=== PATIENT | male | born 1980 | race Caucasian/White ===

== ENCOUNTER → 2020-06-11 | Outpatient (CLI) | payer OTHER ==
[~2020-06-11] MED LIST: CETIRIZINE HCL10 MG PO; CIALIS20 MG PO; CIALIS5 MG PO; EPIPEN 2-P0.3 MG/0.3 INJ; IBU800 MG PO; LIPITOR40 MG PO; LISINOPRIL10 MG PO; SINGULAIR10 MG PO; VOLTAREN EC 5050 MG PO
[2020-06-11 10:16] LABS: HEMOGLOBIN 15.9 gm/dl (14.0-17.5); RED BLOOD COUNT 4.84 M/UL (4.20-5.50); WHITE BLOOD COUNT 8.4 K/UL (4.5-11.0)
[2020-06-11 10:39] LABS: BUN/CREATININE RATIO 10 (0-10)
== END ==
LOC: OPSV2 09:33
PROVIDERS: Orthopaedic Surgery
DX: Z01.818 Encounter for other preprocedural examination (principal); S43.431A Superior glenoid labrum lesion of right shoulder, initial encounter; M75.101 Unspecified rotator cuff tear or rupture of right shoulder, not specified as traumatic; I49.3 Ventricular premature depolarization; X58.XXXA Exposure to other specified factors, initial encounter
CPT/HCPCS: 36415; 71046; 80048; 85027; 93005

== ENCOUNTER → 2020-06-14 | Day surgery (SDC) | payer OTHER ==
[~2020-06-14] VITALS: Ht 182.9 cm; Wt 124.7 kg
== END | disposition home or self-care (01) ==
LOC: OR 06:12
PROVIDERS: Orthopaedic Surgery
PROC: 0RBJ4ZZ Excision of Right Shoulder Joint, Percutaneous Endoscopic Approach (ICD-10-PCS; principal; 2020-06-14 07:30)
PROC: 0RNJ4ZZ Release Right Shoulder Joint, Percutaneous Endoscopic Approach (ICD-10-PCS; 2020-06-14 07:30)
PROC: 3E0T3BZ Introduction of Anesthetic Agent into Peripheral Nerves and Plexi, Percutaneous Approach (ICD-10-PCS; 2020-06-14 07:30)
DX: S43.431A Superior glenoid labrum lesion of right shoulder, initial encounter (principal); M75.111 Incomplete rotator cuff tear or rupture of right shoulder, not specified as traumatic; M75.51 Bursitis of right shoulder; S43.491A Other sprain of right shoulder joint, initial encounter; M25.811 Other specified joint disorders, right shoulder; G89.18 Other acute postprocedural pain; I10 Essential (primary) hypertension; F17.210 Nicotine dependence, cigarettes, uncomplicated; M19.90 Unspecified osteoarthritis, unspecified site; F41.9 Anxiety disorder, unspecified; F32.9 Major depressive disorder, single episode, unspecified; E78.5 Hyperlipidemia, unspecified; M35.7 Hypermobility syndrome; Z79.1 Long term (current) use of non-steroidal anti-inflammatories (NSAID); Z79.891 Long term (current) use of opiate analgesic; Z79.899 Other long term (current) drug therapy; Z88.0 Allergy status to penicillin; Z88.8 Allergy status to other drugs, medicaments and biological substances; Z91.018 Allergy to other foods; Z20.822 Contact with and (suspected) exposure to COVID-19; X50.9XXA Other and unspecified overexertion or strenuous movements or postures, initial encounter
CPT/HCPCS: C1713; J0171; J0592; J1100; J1885; J2001; J2250; J2405; J2704; J2710; J2795; J3010; J7120

== ENCOUNTER → 2020-07-23 | Outpatient (CLI) | payer OTHER | LOC: KOH-I 12:57 | DX: G43.909 Migraine, unspecified, not intractable, without status migrainosus (principal) | CPT/HCPCS: 70450 ==

== ENCOUNTER 2021-04-07 06:47 | Inpatient (IN) | payer OTHER ==
[~2021-04-07] VITALS: Ht 182.9 cm; Wt 106.6 kg
[~2021-04-07 06:47] MED LIST changes: +HYDROCODON-ACE1 EAC4 PO
[2021-04-07 11:03] LABS: BUN/CREATININE RATIO 16 (0-10)
[2021-04-07 11:27] LABS: HEMOGLOBIN 15.3 gm/dl (14.0-17.5); RED BLOOD COUNT 4.65 M/UL (4.20-5.50); WHITE BLOOD COUNT 14.7 K/UL (4.5-11.0)
[2021-04-07 14:41] LABS: CRYPTOCOCCUS NEOFORMANS/GATTII Not Detected (Negative); CYTOMEGALOVIRUS Not Detected (Negative); ENTEROVIRUS Not Detected (Negative); ESCHERICHIA COLI K1 Not Detected (Negative); HAEMOPHILUS INFLUENZAE Not Detected (Negative); HERPES SIMPLEX VIRUS 1 Not Detected (Negative); HERPES SIMPLEX VIRUS 2 Not Detected (Negative); HUMAN HERPESVIRUS 6 Not Detected (Negative); HUMAN PARECHOVIRUS Not Detected (Negative); LISTERIA MONOCYTOGENES Not Detected (Negative); NEISERRIA MENINGITIDIS Not Detected (Negative); STREPTOCOCCUS AGALACTIAE Not Detected (Negative); STREPTOCOCCUS PNEUMONIAE Not Detected (Negative); VARICELLA ZOSTER VIRUS Not Detected (Negative)
[2021-04-07 15:22] LABS: GLUCOSE,CSF 60 mg/dL (50-80); TOTAL PROTEIN,CSF 35 mg/dL (20-45)
[2021-04-07 15:26] LABS: WBC (AUTOMATED 1 10^3 (0-5)
[2021-04-07 17:25] LABS: WBC (AUTOMATED 5 10^3 (0-5)
[2021-04-08 04:10] LABS: HEMOGLOBIN 15.3 gm/dl (14.0-17.5); RED BLOOD COUNT 4.63 M/UL (4.20-5.50); WHITE BLOOD COUNT 12.1 K/UL (4.5-11.0)
[2021-04-08 04:58] LABS: BUN/CREATININE RATIO 23 (0-10)
[2021-04-08] MEDS ORDERED: ZESTRIL10 MG PO (14:19)
== END 2021-04-08 19:45 | disposition home or self-care (01) | DRG 103 ==
LOC: ER1 06:47 → CDU 18:00 → ER1 18:00 → CDU 18:00
PROVIDERS: Internal Medicine; Nurse Practitioner; ADMIT Internal Medicine
PROC: 009U3ZX Drainage of Spinal Canal, Percutaneous Approach, Diagnostic (ICD-10-PCS; principal; 2021-04-07)
PROC: B01B1ZZ Fluoroscopy of Spinal Cord using Low Osmolar Contrast (ICD-10-PCS; 2021-04-07)
DX: R51.9 Headache, unspecified (principal); R41.0 Disorientation, unspecified; Z20.822 Contact with and (suspected) exposure to COVID-19; I10 Essential (primary) hypertension; E78.5 Hyperlipidemia, unspecified; Z88.0 Allergy status to penicillin; Z82.0 Family history of epilepsy and other diseases of the nervous system; Z87.891 Personal history of nicotine dependence; Z88.2 Allergy status to sulfonamides
CPT/HCPCS: 62270; 70496; 70553; 71045; 80048; 80053; 80307; 81001; 82550; 82553; 82945; 83605; 83874; 84157; 84484; 85025; 87070; 87205; 87483; 89051; 93005; 96374; 96375; 99285; A9577; G0378; J1100; J2270; J2405; Q9967; U0002

== ENCOUNTER → 2021-05-12 | Outpatient (CLI) | payer OTHER ==
[~2021-05-12] MED LIST changes: +ZESTRIL10 MG PO
== END ==
LOC: RAD 08:39 → MRI 09:00 → RAD 09:00
DX: M75.101 Unspecified rotator cuff tear or rupture of right shoulder, not specified as traumatic (principal)
CPT/HCPCS: 73040; 73222; A9577; Q9967